=== PATIENT | female | born 2000 | race Caucasian/White ===

== ENCOUNTER 2018-08-24 17:11 | Emergency (ER) | payer OTHER ==
[~2018-08-24] VITALS: Ht 171.4 cm; Wt 81.2 kg
[2018-08-24 17:35] VITALS: BP 119/68
--- NOTE | 2018-08-24 17:46 | NUR ---
PATIENT AMBULATED TO CHAIR C AT THIS TIME.
--- NOTE | 2018-08-24 18:08 | NUR ---
C/O HEADACHE TO RT SIDE OF HEAD FOR 2 DAYS PT TOOK TYLENOL YESTERDAY W/ RELEIF, NO MEDS TODAY . PT AWAKE NO NEURO DEFECEITS.
--- NOTE | 2018-08-24 19:38 | NUR ---
Dr. Castano evaluating patient
[2018-08-24] MEDS ORDERED: KETOROLAC 60 MG/2 ML VIAL IM ONE (19:55)
[2018-08-24 20:40] VITALS: BP 116/64
== END 2018-08-24 20:35 | disposition home or self-care (01) ==
LOC: MED 17:11
DX: G44.209 Tension-type headache, unspecified, not intractable (principal)
CPT/HCPCS: 81002; 81025; 96372; 99283; J1885